=== PATIENT | male | born 1940 | race Caucasian/White ===

== ENCOUNTER 2024-08-05 10:33 | Observation (INO) ==
--- NOTE | 2024-06-25 13:26 | PAT Medication Instructions ---
Medication Instructions Date of Service June 25, 2024 Home Medications Medication Instructions Recorded Maximiliano Solomon #1 ea 06/13/24 ascorbic acid (vitamin C) 500 mg tablet (Vitamin C) 500 mg PO DAILY furosemide 20 mg tablet 20 mg PO DAILY PRN Edema metoprolol succinate 25 mg tablet,extended release 24 hr 25 mg PO QAM omega-3 fatty acids-fish oil 360 mg-1,200 mg capsule (Fish Oil) 1 cap PO BID STOP taking 2 weeks before surgery (or as soon as possible if surgery is within 2 weeks) omega-3 fatty acids-fish oil 360 mg-1,200 mg capsule (Fish Oil) 1 cap PO BID DO NOT take the morning of surgery ascorbic acid (vitamin C) 500 mg tablet (Vitamin C) 500 mg PO DAILY furosemide 20 mg tablet 20 mg PO DAILY PRN Edema Take morning of surgery With a small sip of water, OTHERWISE NOTHING TO EAT OR DRINK AFTER MIDNIGHT: metoprolol succinate 25 mg tablet,extended release 24 hr 25 mg PO QAM Take evening before surgery furosemide 20 mg tablet 20 mg PO DAILY PRN Edema (if needed) Other Notes If you have any questions please call us at [phone] or [phone] or [phone] or [phone]
--- NOTE | 2024-07-15 09:20 | Anesthesiology Consultation ---
Date of Service July 15, 2024 Assessment & Plan (1) Encounter for pre-operative examination: Plan - awaiting [facility] cardiology clearance, optimization form to be faxed. Patient and surgeon's office made aware. He denied questions or concerns. - Patient reports upcoming office visit with [facility]. - will request most recent pacemaker report. - cardiology office visit 01/08/24 [facility]: "...device checks reveal stable pacing thresholds with adequate pacing burden...euvolemic on exam...stable from a cardiac standpoint...usual palpitations and LE swelling...no change in cardiac medications. Echo before next f/u...EP f/u 1 year..." - Outpatient joint assessment: Patient is currently scheduled for inpatient pathway. If re-evaluated and patient/surgeon requests outpatient pathway, patient is not a candidate for outpatient joint program. Chart Review Chart Review: Pending: Refer to Additional Notes / Consult section and Patient seen in Pre Admission Testing Teaching & Discussion Pre-Anesthesia Teaching/Discussion Notes: Instructed NPO after midnight before surgery, except medications with 15 cc of water. Medication instructions provided according to the PAT guidelines. History Surgery Operation Date: 08/05/24 13:00 Proposed Procedures p Left Total Knee Arthroplasty - Alexi Lazar MD Height/Weight Height: 5 ft 10 in Weight: 63.1 kg Allergies Allergy/AdvReac Type Severity Reaction Status Date / Time cephalexin [From Keflex] Allergy Unknown Hives Verified 06/25/24 08:03 sulfamethoxazole Allergy Unknown Hives Verified 06/25/24 08:03 [From Bactrim] trimethoprim [From Bactrim] Allergy Unknown Hives Verified 06/25/24 08:03 Medications Home Medications Medication Instructions Recorded Confirmed Last Taken Wheeled Walker #1 ea 06/13/24 06/13/24 Unknown ascorbic acid (vitamin C) 500 mg 500 mg PO DAILY 06/25/24 06/25/24 Unknown tablet (Vitamin C) metoprolol succinate 25 mg 25 mg PO QAM 06/25/24 06/25/24 Unknown tablet,extended release 24 hr omega-3 fatty acids-fish oil 360 1 cap PO BID 06/25/24 06/25/24 Unknown mg-1,200 mg capsule (Fish Oil) Past Medical History Medical History Acid reflux controlled, stable per pt Allergic rhinitis Bilateral ankle pain due to accidents in service/work; chronic, denies change or worsening BPH (benign prostatic hyperplasia) Cardiac pacemaker (04/18/19) Medtronic - (SSS) checked remotely, follows w/ Dr Silva Constipation COPD (chronic obstructive pulmonary disease) mild; patient states has not needed inhalers Degenerative arthritis knees bilat-patient notes several falls with either knee buckling-states Dr. Lazar is aware-denies recent fall or hitting head-states is able to slowly lower himself to the ground Dyslipidemia no meds Edema of both lower extremities chronic, denies change or worsening History of vertigo follows with ENT HTN (hypertension) controlled, stable per pt Hx of sick sinus syndrome Mitral valve regurgitation Osteoarthritis Self-catheterizes urinary bladder Sleep apnea mild - no longer uses device Tricuspid valve regurgitation Patient denies h/o stroke, seizures, heart attack, heart failure, DM, blood clots/DVTs or blood transfusions. Exercise / Class Metabolic Activity III < 4 Walking/Shop/Light housework (ambulates with cane, denies chest discomfort or shortness of breath with one flight of stairs) Past Surgical History Surgical History History of bladder surgery revision of bladder neck History of transurethral resection of prostate Hx of colonoscopy Hx of umbilical hernia repair S/P lumbar laminectomy Past Anesthesia History No Hx of Anesthesia Complications and No Family Hx of Anesthesia Complications History of PONV No Hx of PONV and No Hx of Motion Sickness Social History Smoking Status: Former smoker Do You Dip or Chew Tobacco: No Smoking End Date: quit 1979 Hx Alcohol Use: Yes Alcohol type: beer and wine alcohol intake frequency: holidays/special occasions only Hx Substance Use: No substance use type: does not use Review of Systems Patient denies chest pain, shortness of breath, dyspnea on exertion, fever, chills, cough, wheezing, or palpitations. Physical Exam Vital Signs Vitals BP 152/92 P 79 TEMP 97.9 SP02 99% on RA RESP 19 Physical Patient resting comfortably in chair in no acute distress, alert and oriented, responding appropriately throughout visit Full cervical extension range of motion without pain TMD 3 finger breadths Mallampati Score 2 Dentition: one crown and one chipped tooth, denies loose teeth, caps, implants or bridges Lungs: normal respiratory effort. Good air movement, clear throughout to auscultation, no adventitious breath sounds Cardiac: regular rate and rhythm, no murmurs noted Carotid arteries: negative bruit bilat Lab Results Anesthesia Preop Results Results Anesthesia Widget: WBC 5.92 K/ul (4.8-10.8) 07/15/24 Hgb 12.0 g/dl (14.0-18.0) L 07/15/24 Hct 37.0 % (42.0-52.0) L 07/15/24 Plt 173 K/uL (130-400) 07/15/24 Na 136 mmol/L (136-145) 07/15/24 K 4.4 mmol/L (3.5-5.1) 07/15/24 Cl 103 mmol/L (98-107) 07/15/24 CO2 28 mmol/L (21-32) 07/15/24 BUN 18 mg/dl (6-23) 07/15/24 Creat 1.01 mg/dl (0.6-1.4) 07/15/24 Glucose Level 81 mg/dl (70-99(Fasting)) 07/15/24 PT 10.9 Seconds (9.0-12.0) 07/15/24 PTT 28 Seconds (21-31) 07/15/24 INR 1.0 (0.9-1.1) 07/15/24 Blood Type A Positive 07/15/24 Antibody Screen NEGATIVE 07/15/24 Testing Electrocardiogram Date: 07/15/24 Atrial paced rhythm with PACs, rate 87 bpm Minimal voltage criteria for LVH, may be normal variant Chest X-Ray Date: 07/15/24 No acute findings. Echocardiogram Date: 04/04/23 EF 55-59% Moderate posterior mitral leaflet prolapse Severe mitral regurgitation Moderate tricuspid regurgitation Mild aortic valve regurgitation Normal LV wall motion Stress Test Date: 06/29/21 MPHR 64% Negative for ischemia Perfusion defect is present at both rest and stress (normal wall motion on gated SPECT). This is more suggestive of attenuation artifact EF 52%
--- NOTE | 2024-08-02 17:28 | History & Physical Report ---
Date of Service August 02, 2024 Assessment & Plan (1) Degenerative arthritis of knee, bilateral: 83-year-old gentleman with advanced bilateral knee DJD left more symptomatic than right. Is failed conservative measures. He would like to have his left knee fixed. Savage like to have both knees fixed with start out with the left. Plan: Orgran proceed with left knee replacement. Risk and benefit this procedure explained. Informed consent is obtained. I emphasized the importance of the controlling the swelling and edema in his legs postoperatively. He is likely going to need to go to rehab or senior care facility as he lives by himself. We use aspirin for DVT prophylaxis. (2) Edema of both lower extremities: (3) Bilateral ankle pain: (4) Tricuspid valve regurgitation: (5) Mitral valve regurgitation: (6) History of vertigo: (7) Dyslipidemia: (8) COPD (chronic obstructive pulmonary disease): (9) Constipation: (10) BPH (benign prostatic hyperplasia): (11) Acid reflux: History of Present Illness Chief Complaint: . Bilateral knee pain discomfort and instability left side greater than the right. Primary Care Provider: Rommel Harman MD . The patient is an 83-year-old gentleman who presents specifically sick for surgery of his knees. He is got about a 5+ year history of increasing bilateral knee pain discomfort and instability. He has been getting treatment [facility] with injections which have become less successful over time. He has been using a cane to get around to assist with his pain and instability. He also has some ankle problems followed by Dr. Doherty. His knee is becoming more unstable and giving out. He is worried about falling. He like to have his knees replaced. Allergies Allergy/AdvReac Type Severity Reaction Status Date / Time cephalexin [From Keflex] Allergy Unknown Hives Verified 06/25/24 08:03 sulfamethoxazole Allergy Unknown Hives Verified 06/25/24 08:03 [From Bactrim] trimethoprim [From Bactrim] Allergy Unknown Hives Verified 06/25/24 08:03 Home Medications Medication Instructions Recorded Confirmed Type Wheeled Walker #1 ea 06/13/24 06/13/24 Rx ascorbic acid (vitamin C) 500 mg 500 mg PO DAILY 06/25/24 06/25/24 History tablet (Vitamin C) metoprolol succinate 25 mg 25 mg PO QAM 06/25/24 06/25/24 History tablet,extended release 24 hr omega-3 fatty acids-fish oil 360 1 cap PO BID 06/25/24 06/25/24 History mg-1,200 mg capsule (Fish Oil) Past Med/Surg History Problem List Encounter for pre-operative examination Degenerative arthritis of knee, bilateral Medical History Bilateral ankle pain due to accidents in service/work; chronic, denies change or worsening Edema of both lower extremities chronic, denies change or worsening Sleep apnea mild - no longer uses device Osteoarthritis Hx of sick sinus syndrome Tricuspid valve regurgitation Mitral valve regurgitation History of vertigo follows with ENT Dyslipidemia no meds COPD (chronic obstructive pulmonary disease) mild; patient states has not needed inhalers Constipation BPH (benign prostatic hyperplasia) Allergic rhinitis Acid reflux controlled, stable per pt Self-catheterizes urinary bladder Cardiac pacemaker (04/18/19) Medtronic - (SSS) checked remotely, follows w/ Dr Silva HTN (hypertension) controlled, stable per pt Degenerative arthritis knees bilat-patient notes several falls with either knee buckling-states Dr. Lazar is aware-denies recent fall or hitting head-states is able to slowly lower himself to the ground Surgical History Hx of umbilical hernia repair History of transurethral resection of prostate Hx of colonoscopy S/P lumbar laminectomy History of bladder surgery revision of bladder neck Social History Smoking Status: Former smoker Tobacco Type: Cigarettes Smoking End Date: quit 1979; Second Hand Exposure: No; Do You Dip or Chew Tobacco: No; Tobacco Cessation Education Requested by Patient: No Hx Alcohol Use: Yes Alcohol type: beer and wine Hx Substance Use: No Preferred Language: Czech Communication Ability: Effective Drawing Press Operator Required: No Beliefs That Will Affect Care: None Current Living Situation: Alone Other Information That Helps Us Care for You: No (rehab upon discharge) Feels Safe at Home: Yes Safety Concerns: Feels Safe At This Time Assistive Devices: Cane, Glasses, Hearing Aid - Bilateral and Walker Review of Systems All systems reviewed & are unremarkable except as noted in HPI & below. Physical Exam . Physical examination is a pleasant elderly male. Examination of his knees reveal patient to ambulates using a cane. Examination left knee reveals a valgus alignment which is increased with weightbearing. Small knee effusion. Range of motion 5-1 20. He is got no instability grossly. He is got some edema distally. Examination the right knee reveals a varus aligned knee. Mild edema distally. Range of motion 5-1 25. No instability. No pain with hip motion. Constitutional WD/WN, vitals as above Respiratory normal respiratory effort, lungs clear to auscultation Cardiovascular RRR, no murmur, no edema Gastrointestinal (Abdomen) normal bowel sounds, soft, nontender, no hepatosplenomegaly Results & Data Results & Data Laboratory Results . Diagnostic Findings . X-rays of both knees reviewed. She advanced bilateral knee DJD. Examination of the left knee reveals complete loss of lateral joint space. X- rays of the right knee reveal advanced medial compartment arthritis. Got [id number] disease in both knees. He is got advanced patellofemoral arthritis as well. PG Care Time/CCT Total # of Minutes Spent Total Time Spent with Patient: Total time spent is greater than 50% in coordination of care (as documented) at patient's floor/unit and/or counseling patient: Coding Level of Care Code None Diagnoses Degenerative arthritis of knee, bilateral M17.0 Edema of both lower extremities R60.0 Bilateral ankle pain M25.571; M25.572 Tricuspid valve regurgitation I07.1 Mitral valve regurgitation I34.0 History of vertigo Z87.898 Dyslipidemia E78.5 COPD (chronic obstructive pulmonary disease) J44.9 Constipation K59.00 BPH (benign prostatic hyperplasia) N40.0 Acid reflux K21.9
[~2024-08-05 10:33] MED LIST: ALLERGY Noted to ORDERED Medication SCH; ROPIVACAINE 0.5% 5 MG/ML 30 ML VIAL ONE
[2024-08-05] MEDS: LR 500ML BOLUS, THEN 15ML/HR IV SCH (10:52)
[2024-08-05] MEDS: dexAMETHasone**PF** 10 MG/ML VIAL IV SCH (10:53)
[2024-08-05] MEDS: CeleBREX 200 MG CAP PO SCH (10:53)
[2024-08-05] MEDS: ACETAMINOPHEN 500 MG TAB PO SCH ×2 (10:53→20:52)
[2024-08-05] MEDS: FAMOTIDINE 20 MG TAB PO SCH (10:54)
[2024-08-05] MEDS: LR 60ML/HR IV SCH (10:54)
[2024-08-05] MEDS: METOCLOPRAMIDE HCL 10 MG TABLET PO SCH (10:54)
--- NOTE | 2024-08-05 11:21 | History & Physical Bridge Note ---
Date of Service August 05, 2024 History & Physical Bridge Note I have examined the patient, reviewed the History & Physical and in the interval since the performance of the History & Physical I have noted the following changes of clinical significance: no changes noted
[2024-08-05] MEDS ORDERED: fentaNYL citrate PF 100 MCG/2 ML VIAL ONE (12:26)
[2024-08-05] MEDS ORDERED: PROPOFOL IV EMULSION 10 MG/ML 20 ML VIAL IV ONE ×2 (12:30→14:48)
[2024-08-05] MEDS ORDERED: KETOROLAC 30 MG/ML VIAL IV PRN (12:31)
[2024-08-05] MEDS ORDERED: ONDANSETRON INJ 2 MG/ML 2 ML VIAL IV PRN ×2 (12:31→17:56)
[2024-08-05] MEDS ORDERED: ATROPINE SULFATE 0.1 MG/ML 10ML SYR IV PRN (12:31)
[2024-08-05] MEDS ORDERED: HYDROmorphone INJ 1 MG/ML SYRINGE IV PRN (12:31)
[2024-08-05] MEDS ORDERED: MIDAZOLAM HCL 1 MG/ML 2ML VIAL ONE (13:02)
[2024-08-05] MEDS: ceFAZolin 2000MG 2,000 MG/15 ML SYR IV SCH (13:45)
[2024-08-05] MEDS ORDERED: KETAMINE HCL 10MG/ML SYR ONE (13:50)
[2024-08-05] MEDS ORDERED: ONDANSETRON INJ 2 MG/ML 2 ML VIAL ONE (14:07)
[2024-08-05] MEDS ORDERED: DEXAMETHASONE SOD INJ 4 MG/ML VIAL ONE (14:07)
[2024-08-05] MEDS: ORTHO JOINT ANESTHETIC ONE (14:19)
[2024-08-05] MEDS: ROPIV 0.5% 246mg, Ketorolac 30mg, EPINEPHrine 0.5mg in NSS INFIL SCH (14:19)
[2024-08-05] MEDS: TRANEXAMIC ACID 1,000 MG **IV Intra-op IV SCH (14:30)
[2024-08-05] MEDS: VANCOMYCIN HCL 1000MG/20ML VIAL ONE (14:33)
--- NOTE | 2024-08-05 15:34 | Operative Report ---
PG Post Operative Report Pre & Post Diagnosis Operation Date: 08/05/24 12:30 Pre-Op Diagnosis: Left Knee Degenerative Joint Disease Post-Op Diagnosis: Left Knee Degenerative Joint Disease I identified the patient and participated in the time-out.: Yes Procedure Operation Date: 08/05/24 12:30 Actual Procedures p Left Total Knee Arthroplasty(Left) - Alexi Lazar MD Surgeon Alexi Lazar MD [employer] Wilfred Faulkner PA-C Estimated Blood Loss 75 Findings Consistent with Post-Op Diagnosis operative findings revealed advanced left knee tricompartment DJD. He had grade 4 [id number] disease in all 3 compartments. Significant hemosiderin staining of the synovium with significant synovitis. Diffuse osteopenia. Specimens Left knee sent for pathology. Anesthesia Type Spinal MAC Complications none Disposition Accompanied Patient To Recovery: No Indications Patient is an 81-year-old elderly gentleman whose had a several year history of gradual progressive increasing bilateral knee pain discomfort. He failed all conservative measures. His knee pain is limiting his activity level and ability to maintain independent lifestyle. He elected proceed with left total knee arthroplasty. Description of Procedure Operative implants consist of: 1. Biomet Vanguard size 65 left posterior stabilized femoral component. 2. Biomet size 71 tibial tray. 3. 10 mm PS plus polyethylene insert. 4. 31 x 8 all poly patella. The patient was taken the op room, identified, placed on the operating table in the supine position. All contact areas were appropriately padded. IV antibiotics fibra anesthesia team. Spinal anesthetic and adductor canal block had been provided in the holding area. A left thigh turn was then placed. Left lower extremity was then prepped and draped in usual sterile fashion. The left leg was elevated and exsanguinated with use of an Esmarch and a turn was placed at 300 mmHg. An anterior approach left knee was then performed to longitudinal incision centered over the patella. Sharp dissection was got through subcutaneous tissue down the extensor mechanism. A medial parapatellar arthrotomy was then performed. Some subperiosteal dissection was carried out medially. The fat pad was dissected from Neath patella tendon. Lateral patellofemoral ligament was released. The patella subluxate laterally and the knee was flexed. The osteophytes taken off distal femur. ACL and PCL were then released from distal femur the tibia subluxated anteriorly. The external tibial alignment jig was then placed on the interface the tibia and adjusted 12 mm medially. The proximal tibial cut was made remove about 2 to 3 mm of bone from medial side. Tibia sized to a size 71. Attention drawn the femur. The distal femur was entered with sharp drill. Intramedullary canal was suction. A left 5 degree valgus cutting guide was placed. This femoral cutting block was pinned in place. This femoral cut was made take an additional 3 mm of bone off distal femur. The femur was then sized to a size 65. The AP cutting block was pinned parallel to the epicondylar axis which was 6 degrees of external rotation. Anterior cut, anterior chamfer, posterior cut, posterior chamfer cuts were made. The box cutting guide was placed and adjusted slightly laterally. The box cut was made. The knee was flexed. The remnants of the medial and lateral menisci were excised. The osteophytes taken off the posterior aspect the femur. A trial femoral component was placed. Tibial tray was pinned Kathryn extra rotation and the drill and stem punch were used. Defect in proximal tibia for the tibial tray. Knee was then trialed with a 10 mm insert fit most appropriate. He did have a little bit of laxity in flexion so we elected to use a PS plus implant. Attention was then drawn to the patella. The patella was cleaned of all soft tissues. The patella thickness measured 18 mm in thickness was cut down to 13. It was sized to a size 31 patella. The locals were drilled for a 31 patella. The lateral osteophytes removed. Patella button was placed. Knee was taken through range of motion patella tracked nicely with no thumbs test. Attention was then drawn toward placement permanent components. All trial components were removed. A double batch of Palacos G cement was mixed. I did add an additional gram of vancomycin to the cement. A Biomet Vanguard size 65 left posterior Byce femoral component, size 71 tibial tray, a 10 mm PS plus insert and a 31 x 8 all poly patella then cemented in place. The knee was brought out into full extension till cement hardened. Final cement check was then performed. The pericapsular tissues were injected with total of 100 cc of Ortho mix. Patient did receive 1 g tranexamic acid. Th e tourniquet was then let down for final tourniquet time of 56 minutes. Hemostasis assured use electrocautery. Extensor Meclomen closed with combination 1 PDS suture #1 Vicryl suture in a [id number] fashion. Extensor Meclomen checked found be intact with subcutaneous tissue then closed with 2 Dexon suture in a buried interrupted fashion skin was closed skin felix. Leg was then cleaned and dried and a sterile dressing with Xeroform, 4 fours, sterile cast padding, Garrett bandage were applied. Patient then transferred to the recovery room in stable condition. Patient tolerated procedure well and there were no complications. Wilfred Faulkner, my physician pediatric assistant, was present for the entire procedure. His assistance was essential and required for appropriate patient positioning, prep ping and draping, surgical exposure, performing the technical details of the operation, placement the implants, closure of the wound, and placement of the sterile bandage. I attest to the content of the Intraoperative Record and any orders documented therein. Any exceptions are noted below.
--- NOTE | 2024-08-05 16:11 | XRay Report ---
Clinical History: Postoperative examination 2 views of the left knee are submitted for review. Comparison is made to the prior examination dated 06/13/2024 Findings: There is a new left knee arthroplasty in expected position. There is no definite sign of infection or loosening. No other osseous abnormality is identified. There is air within the joint space, consistent with recent surgery. There are surgical skin felix anteriorly Impression: New left knee replacement Electronically signed by Diogenes Gotti 08-05-2024 4:11 PM
--- NOTE | 2024-08-05 16:13 | Anesthesiology Progress Note ---
Date of Service August 05, 2024 Anesthesia Post Procedure Vital Signs Vital Signs: Temp Pulse Pulse Resp BP Pulse Ox O2 Del Method 08/05/24 16:00 79 18 118/70 98 Room Air 08/05/24 15:50 77 18 116/86 100 Room Air 08/05/24 15:40 74 19 123/69 99 Room Air 08/05/24 15:29 36.8 C 72 20 97/79 L 98 Oxymask 08/05/24 10:51 36.8 C 85 20 150/86 H 98 Room Air O2 Flow Rate 08/05/24 16:00 08/05/24 15:50 08/05/24 15:40 08/05/24 15:29 6 08/05/24 10:51 Transfer of Care Handoff Completed per policy Notes Mental Status: alert / awake / arousable and participated in evaluation Patient Amnestic to Procedure: Yes Nausea / Vomiting: adequately controlled Pain: adequately controlled Airway Patency, RR, SpO2: stable & adequate BP & HR: stable & adequate Hydration State: stable & adequate Anesthetic Complications: no major complications apparent
[2024-08-05] MEDS ORDERED: traMADol HCL 50 MG TABLET PO PRN (17:56)
[2024-08-05] MEDS ORDERED: NALOXONE HCL 0.4 MG/1 ML VIAL/CARP IV PRN (17:56)
[2024-08-05] MEDS ORDERED: METOCLOPRAMIDE HCL INJ 5 MG/ML 2 ML VIAL IV PRN (17:56)
[2024-08-05] MEDS ORDERED: bisacodyL 10 MG SUPP PR PRN (17:56)
[2024-08-05] MEDS ORDERED: ALUMINUM/MAGNESIUM SUSP 30 ML UDC PO PRN (17:56)
[2024-08-05] MEDS ORDERED: HYDROmorphone INJ 0.5 MG/0.5 ML SYR IV PRN (17:56)
[2024-08-05] MEDS ORDERED: MAGNESIUM HYDROXIDE SUSP 30 ML UDC PO PRN (17:56)
[2024-08-05] MEDS: KETOROLAC TROMETHAMINE 15 MG/ML VIAL IV SCH (18:51)
[2024-08-05] MEDS: SENNA 8.6 MG TAB PO SCH ×2 (20:43→20:51)
[2024-08-05] MEDS: ceFAZolin 1000MG 1,000 MG/7.5 ML SYR IV SCH (20:49)
[2024-08-05] MEDS: OMEGA-3 (PURIFIED FISH OIL) 1 GM CAP PO SCH (20:51)
[2024-08-05] MEDS: DOCUSATE SODIUM 100 MG CAP PO SCH (20:51)
[2024-08-05] MEDS: ASPIRIN 81 MG ECTAB PO SCH (20:51)
[2024-08-05] MEDS: TRANEXAMIC ACID / 0.7% NACL 1,000 MG/100 ML BAG IV SCH (20:52)
[2024-08-06] MEDS: dexAMETHasone 10 MG in SYRINGE 0 ML IV SCH (08:18)
[2024-08-06] MEDS: METOPROLOL SUCC 25MG EXT REL TAB PO SCH (08:19)
[2024-08-06] MEDS: MULTIVITAMIN TAB PO SCH (08:19)
[2024-08-06] MEDS: TAMSULOSIN HCL 0.4 MG CAP PO SCH (08:19)
[2024-08-06] MEDS: ASCORBIC ACID 500 MG TAB PO SCH (08:19)
[2024-08-06 08:27] LABS: Hematocrit (blood only) 30.4 % (42.0-52.0); Hemoglobin 10.3 g/dl (14.0-18.0); Mean Corpuscular Hemoglobin 31.3 pg (25.0-34.0); Mean Corpuscular Hgb Conc 33.9 g/dL (32.0-36.0); Mean Corpuscular Volume 92.4 fL (80.0-100.0); Mean Platelet Volume 11.3 fL (9.4-12.4); Platelet Count 142 K/uL (130-400); RDW Coefficient of Variation 13.8 % (11.5-14.5); RDW Standard Deviation 47.3 fL (36.4-46.3); Red Blood Count 3.29 M/uL (4.70-6.10); White Blood Count 11.27 K/ul (4.8-10.8)
--- NOTE | 2024-08-06 08:57 | Orthopedic Progress Note ---
Date of Service August 06, 2024 Assessment & Plan (1) Status post total left knee replacement: Pain controlled PT/OT, wbat dvt prophylaxis: teds, scd's, aspirin d/c planning: we'll see how therapy goes today, possible d/c home today with home health. Subjective .83 year old patient POD 1 from left tka. Doing well. Pain controlled. Adamant about going home today. Review of Systems All systems reviewed & are unremarkable except as noted in HPI & below. Physical Exam .alert and oriented. NAD. VSS Left leg: dressing clean, dry, intact. Able to flex/ext knee, do straight leg raise, DF/PF, NVI Results & Data Results & Data Laboratory Results . Diagnostic Findings . PG Care Time/CCT Total # of Minutes Spent Total Time Spent with Patient: Total time spent is greater than 50% in coordination of care (as documented) at patient's floor/unit and/or counseling patient: Coding Level of Care Code 96687 Post Operative Follow-Up Diagnoses Status post total left knee replacement Z96.652
[2024-08-06 09:15] LABS: Calcium 8.6 mg/dl (8.6-10.3); Potassium 4.5 mmol/L (3.5-5.1)
[2024-08-06 09:21] LABS: BUN Creatinine Ratio 25.2 (10-20); Creatinine Clr Calc Pharmacy 36.6 ml/min
--- OUTSIDE RECORDS SUMMARY | 2024-08-06 11:16 | External Medical Summary | Summary of Care ---
Author Name Unknown Organization [facility] Address [address] [place] [address] Phone [phone] Care Team Providers Care Blower Insulator Name Role Phone Rommel Harman MD Primary Care Provider [phone] Reason for Visit * Reason Onset Date Comments Advice 06/06/2024 Encounter Details Date Type Department Care Team (Late st Contact Info) Description 06/06/2024 Telephone Cardiology, [place] [address] [facility] [place] [address] Keily Silva, DO 400 [facility] [place] [id number] Advice Allergies Active Allergy Reactions Criticality Noted Date Comments Sulfamethoxazole-Trimethoprim Hives 2015 Rash on extremities Cephalexin Hives 05/26/2015 Rash on extremities documented as of this encounter (statuses as of 07/24/2024) Medications Coila-3 Fatty Acids (FISH OIL) 1200 MG CAPS 2 tablets daily 9 Active Misc. Devices MISC Custom molded orthotics Left foot pain, left ankle pain, OA left ankle 1 Each 0 Active Catheters Self catheterize every 4-6 hours and as needed 120 Each 0 Active Magnesium 200 MG Oral Tablet Take 1 Tablet by mouth in the morning and 1 Tablet before bedtime. 3 Active B-12 2500 MCG Oral Tablet Take 1 Tablet by mouth every evening. 3 Active Rosuvastatin Calcium 5 MG Oral Tablet (Crestor)Indicat ions:Dyslipidemi a, goal LDL below 160 Take 1 Tablet by mouth in the morning. 30 Tablet 11 4 Active Additional Information Patient not taking.Reported on 06/19/2024 Lisinopril 5 MG Oral Tablet (Prinivil) Take 1 Tablet by mouth in the morning. 90 Tablet 3 4 Active Additional Information Patient not taking.Reported on 06/19/2024 Tadalafil 20 MG Oral Tablet (Cialis)Indicati ons:Erectile dysfunction, unspecified erectile dysfunction type Take 1 Tablet by mouth daily as needed for Erectile Dysfunction. 30 Tablet 1 4 Active Additional Information Patient not taking.Reported on 06/19/2024 Clotrimazole-Bet amethasone 1-0.05 % External Cream (Lotrisone) Apply to right foot twice daily. 45 g 5 4 Active Additional Information Patient not taking.Reported on 06/19/2024 Centrum Silver 50+Men Oral Tablet Take by mouth. daily 4 Active Furosemide 20 MG Oral Tablet (Lasix)Indicatio ns:Pedal edema Take 1 Tablet by mouth every other day. 30 Tablet 1 4 Active Metoprolol Succinate ER 25 MG Oral Tablet Extended Release 24 Hour (toPROL XL)Indications:S SS (sick sinus syndrome) (HCC),Symptomati c PVCs TAKE 1 TABLET BY MOUTH EVERY DAY IN THE MORNING 90 Tablet 3 4 Active Nitrofurantoin Monohyd Macro 100 MG Oral Capsule (Macrobid) Take 1 Capsule by mouth in the morning and 1 Capsule before bedtime. With food.. 14 Capsule 4 Active Additional Information Patient not taking.Reported on 06/19/2024 documented as of this encounter (statuses as of 07/24/2024) Active Problems Problem Noted Date Diagnosed Date Cholesteatoma of left ear 04/15/2024 Pulmonary HTN 03/13/2023 Osteoarthritis of left ankle 07/15/2020 Pharyngoesophageal dysphagia 10/03/2019 Gastroesophageal reflux disease without esophagi tis 10/03/2019 History of tobacco use 10/03/2019 SSS (sick sinus syndrome) 04/02/2019 Moderate mitral regurgitation 04/02/2019 Nonrheumatic tricuspid valve regurgitation 04/02 Moderate persistent asthma without complication 04/01/2019 Symptomatic PVCs 03/27/2019 Balance problem 02/01/2018 S/P laminectomy 09/22/2017 Scoliosis of lumbar spine 07/14/2016 Self-catheterizes urinary bladder 01/29/2016 S/P TURP 09/23/2015 History of vertigo 09/23/2015 Dyslipidemia, goal LDL below 160 06/09/2015 Umbilical hernia without obstruction and without gangrene 06/09/2015 documented as of this encounter (statuses as of 07/24/2024) Resolved Problems Problem Noted Date Diagnosed Date Resolved Date Chronic obstructive pulmonary disease 08/16/2021 10/07/2021 S/P lumbar laminectomy 07/14/201608/14 documented as of this encounter (statuses as of 07/24/2024) Immunizations Name Administration Dates Next Due COVID-19 mRNA, LNP-s, No Pre serve, 2-Dose Series (Moderna) 03/30/2021,09/04/2020,08/07/2020 COVID-19, mRNA, LNP-s, PF, B ooster, 100mcg/0.5mg (Moderna) 08/27/2021 Covid-19, Mrna, Lnp-s, Pf, B ivalent, 30 Mcg, IM, 12 yrs and above (Pfizer) 04/05/2022 Pneumococcal Conjugate Vacc, 13 Valent (Prevnar) 10/14/2016,06/01/2016 Pneumococcal Polysaccharide PPV23 (Pneumovax) 03/12/2015 Season Influenza, Quad, PF, Adjuvanted, 65+ Yrs, IM (FLUAD) 02/20/2020 Seasonal Influenza Vac., MDV , IM, 0.5 mL (Fluzone) 03/12/2015 Seasonal Influenza Virus Vac cine, Unspecified Formulation 02/13/2020,02/12/2019,02/12/2017,02/03,02/26/2015 Seasonal Influenza, High Dos e, Trivalent, PF, IM (Fluzone HD) 03/01/2018 Seasonal Influenza, PF, 6 M & above, IM , (FluLaval or Fluzone) 02/13/2020,02/15/2019,02/12/2018,02/25,02/12/2017,02/04/2016,03/12/2015 ,02/26/2015 Seasonal Influenza, Quadriva lent Hd (Fluzone Hd) 02/10/2021 Seasonal Influenza, Quadriva lent Hd, 65+ Yrs 04/05/2022,02/12/2022 Seasonal Influenza, Quadriva lent, No Preserve, IM 02/11/2023,01/29/2016 TDAP (age 10 and older)(Boostrix) 05/28/2015,02/2012 Varicella Zoster Vaccine (Adult) 05/28/2015 Zoster Vaccine Recombinant (Shingrix) 04/22/2020 ,10/30/2018 documented as of this encounter Social History Tobacco Use Types Packs/Day Years Used Date Smoking Tobacco: Former Cigarettes 2 19 0 05/15/1961 - 05/15/1979 Smokeless Tobacco: Never Alcohol Use Standard Drinks/Week Comments Yes 0 (1 standard drink = 0.6 oz pure alcohol) Less than monthly; a beer or wine occasionally PHQ-2 Answer Date Recorded PHQ Adult Total Score 0 04/15/2024 Hunger Vital Sign Answer Date Recorded Within the past 12 months, y ou worried that your food would run out before you got the money to buy more. Never true 04/26/20 23 Within the past 12 months, t he food you bought just didn't last and you didn't have money to get more. Never true 04/26/2023 Childcare Answer Date Recorded Do you feel overwhelmed with taking care of a child, family member or friend? No 04/26/2023 Does your family need help f inding childcare? (Household - for ages 0-17 years) Not on file 04/26/2023 Clothing Answer Date Recorded Have you been unable to get clothing when it was really needed? No 04/26/2023 Is your family able to get c lothes or diapers when needed? (Household - for ages 0-17 years) Not on file 04/26/2023 Personal Safety Answer Date Recorded Do you feel unsafe or have concerns for your saf ety? No 04/26/2023 Do you have concerns for you r family's safety? (Household - for ages 0-17 years) Not on file 04/26/2023 Utilities Answer Date Recorded Do you have trouble paying y our heating, water, or electric bill? No 04/26/2023 Is your family able to pay t he heat, water, or electric bill? (Household - for ages 0-17 years) Not on file 04/26/2023 Does your family have access to good internet? (Household - for ages 0-17 years) Not on file 04/26/2023 Employment Status Answer Date Recorded Are you unemployed or without regular income? No 04/26/2023 Does the household have a re gular source of income? (Household - for ages 0-17 years) Not on file 04/26/2023 Social Connections Answer Date Recorded How often do you feel lonely or isolated from th ose around you? Never 04/26/2023 Financial Resource Strain Answer Date R ecorded Do you have any trouble payi ng for your medications, or do you think you might in the future? No 04/26/2023 Does your family have troubl e paying for medicine? (Household - for ages 0-17 years) Not on file 04/26/2023 Transportation Needs Answer Date Record ed READ ONLY Do you have troubl e getting a ride to medical visits or work? Never True 04/26/2023 Does your family have a hard time getting a ride to doctors visits? (Household - for ages 0-17 years) Not on file 04/26/2023 Has lack of transportation k ept you from medical appointments, meetings, work, or from getting things needed for daily living? Check all that apply. (Adult - for ages 18 years and over) Not on file 04/26/2023 Do you (or your family) have trouble finding or paying for a ride (transportation)? (Household - for ages 0-17 years) Not on file 04/26/2023 Housing Stability Answer Date Recorded Do you currently live in a s helter or have no steady place to sleep at night? No 04/26/2023 READ ONLY Do you think you a re at risk of becoming homeless? No 04/26/2023 Does your family worry about paying for your home or becoming homeless? (Household - for ages 0-17 years) Not on file 1 06/27/2022 Are you homeless or worried that you might be in the future? (Adult - for ages 18 years and over) Not on file Are you (or your family) lizeth eless or worried that you might be in the future? (Household - for ages 0-17 years) Not on file Food Insecurity Answer Date Recorded Do you need food for this week? No 04/26/2023 Are you able to get enough f ood for your family? (Household - for ages 0-17 years) Not on file 04/26/2023 Does your family need food t his week? (Household - for ages 0-17 years) Not on file 04/26/2023 Do you always have enough fo od for your family? (Household - for ages 0-17 years) Not on file 04/26/2023 Sex and Gender Information Value Date Recorded Sex Assigned at Male 04/21/2022 1:41 PM EST Legal Sex Male 4:20 PM EDT Gender Identity Male 04/21/2022 1:41 PM EST Sexual Orientation Straight 04/21/2022 1: 41 PM EST Occupation Industry Job Start Date Job End Date Not on file Not on file Not on file Not on file Not on file Not on file Not on file Not on file documented as of this encounter Functional Status * Are you deaf or do you have serious difficulty hearing? Answer Date of Assessment Author No 04/04/2023 1:20 PM John Castano RN * Are you blind or do you have serious difficulty seeing, even when wearing glasses? Answer Date of Assessment Author No 04/04/2023 1:20 PM John Castano RN * Do you have serious difficulty walking or climbing stairs? (5 years old or older) Answer Date of Assessment Author No 04/04/2023 1:20 PM John Castano RN * Do you have difficulty dressing or bathing? (5 years old or older) Answer Date of Assessment Author No 04/04/2023 1:20 PM John Castano RN * Because of a physical, mental, or emotional condition, do you have difficulty doing errands alone such as visiting a doctors office or shopping? (15 years old or older) Answer Date of Assessment Author No 04/04/2023 1:20 PM John Castano RN documented as of this encounter Mental Status * Because of a physical, mental, or emotional condition, do you have serious difficulty concentrating, remembering, or making decisions? (5 years old or older) Answer Entry Date Author No 04/04/2023 1:20 PM EST John Ferguson RN documented in this encounter Miscellaneous Notes * Telephone Encounter - Christine Martines LPN - 07/24/2024 8:30 AM EDT [facility] were concerned he needed a cardiac clearance, Pt will be having a left total knee replacement on 08/05. With Dr. Lazar at [facility]. Spoke with Ana Laura form is on Dr. Silva's desk for signature. Pt had bloodwork and EKG done yesterday at Dr. Gong office. * Telephone Encounter - Jeane Lares CRNP - 06/17/2024 1:06 PM EST Noted. If pre op clearance is requested can assist further if needed. No questions at this time. Thank you, MELINDA Tyson * Telephone Encounter - iVcky Warren OSA - 06/17/2024 11:47 AM EST Person calling: David Relationship to patient: self Phone/Fax to return call: [phone] Reason for call(brief): pre op clearance Pharmacy: na Provider Name:Dr. Silva Detailed message to office: Pt having knee replacement surgery on 08/05/24 at [facility]. Pre anesthesia testing and all testing (if needed) will be done on 07/15/24. Pt states if you have any questionsto please reach out to Dr. Alexi Lazar at [phone]. Post op appt will be 08/19/24, he wanted to make you aware of what was going on. Pt states you can call him as well if you have any questions for him * Telephone Encounter - Christine Martines LPN - 06/06/2024 3:33 PM EST Please Disregard, Pt has not even seen Dr. Lazar yet. [facility]. They will reach out if and when surgery is needed. Pt has not been seen since January 07 last EKG 06/21/2021. Does Pt need pre op clearance appointment? Left message with Dr. Gong office asking what type of anesthesia and what procedure was being done. * Telephone Encounter - Liv Guillermo OSA - 06/06/2024 3:17 PM EST Person calling: David Relationship to patient: self Phone/Fax to return call: [phone] Reason for call(brief): cardiac clear? Pharmacy: NA Provider Name: Dr Silva Detailed message to office: pt having consult/procedure on 06/13/24 and asking doctor if there are any tests or visits he needs prior to this appt - he would like a call back or you can contact the Ortho surgeon, Dr Alexi Lazar [phone], at [facility] ortho documented in this encounter Plan of Treatment Upcoming Encounters Date Type Department Care Team (Late st Contact Info) Description 09/25/2024 1:00 PM EDT Cardiac Studies Cardiology, [place] [address] [address] [place], Pacer [facility] [address] [address] 11/18/2024 2:40 PM EDT Office Visit Family [facility] [address] [place] [phone] Rommel Harman MD [address] [place] [address] 12/17/2024 2:45 PM EDT Office Visit Otolaryngology/Head & Neck/Facial Plastic Surgery [address] [place] [address] Guy Nicholson MD [address] [place] [address] 01/07/2025 2:00 PM EDT Appointment Cardiac Studies, [facility] [address] [place] [address] 01/16/2025 2:30 PM EDT Office Visit Cardiology, [place] [address] [place] [address] Jeane Lares CRNP [address] [place] [address] Scheduled Procedures Name Priority Associated Diagnoses Date/Ti me COLONOSCOPY FLEXIBLE PROXIMAL DIAGNOSTIC Recall Colon cancer screening Health Maintenance Due Date Last Done Comments Adult Wellness Visit 09/16/2007 COVID-19 Vaccine ( season) 2024 02/07/2024, 02/07/2024, 07/21/2023, Additional history exists Depression Screening 04/15/2025 04/15/2024 DTap/Tdap Vaccines (3 - Td or Tdap) 05/28/2025 05/28/2015, 05/24/2011 Pneumococcal Vaccine: 50+ Years Completed 10/14/2016, 06/01/2016, 03/12/2015 Zoster Vaccines Completed 11/13/2023, 12/01/2020, 10/30/2018, Additional history exists Influenza Vaccine (FLU shot) Completed , 02/11/2023, 04/05/2022, Additional history exists HPV (Gardasil) Vaccine Aged Out No lo nger eligible based on patient's age to complete this topic Hepatitis B Vaccine Aged Out No longe r eligible based on patient's age to complete this topic MENINGOCOCCAL (MENACTRA/MENVEO) Aged Out No longer eligible based on patient's age to complete this topic Meningitis B Vaccine (Bexsero/Trumemba) Aged Out No longer eligible based on patient's age to complete this topic documented as of this encounter Medical Devices Implanted Type Area Hunter Trapper Device Identifier Shelf Expiration Date Model / Serial / Lot Patch Hernia Med [id number] - [id number] Implanted:Qty: 1 on 06/11/2015 by Bernadette Preston DO at OR [facility] N/A: Abdomen CR BARD : DAVOL 02/11/2018 [id number] / / Lead Novus Bipolar 58cm - [id number] - [id number] Implanted:Qty: 1 on 04/18/2019 by Keily Silva DO at OR [facility] Right: Heart [employer] : [facility] 02/12/2021 5076-58 / [id number] / Description: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 52cm - [id number] - [id number] Implanted:Qty: 1 on 04/18/2019 by Keily Silva DO at OR [facility] Left: Chest [employer] : CRM 01/18/2021 5076-5 2 / [id number] / Description:RA Pacemaker Grazyna Xt Mri ls - [id number] - [id number] Implanted:Qty: 1 on 04/18/2019 by Keily Silva DO at OR [facility] Left: Chest [employer] 09/09/2020 [id number] / [id number] / documented as of this encounter Advance Directives Documents on File Type Date Recorded Patient Sawmill Production Worker Expl anation Advance Directives and Livin g Will 10/01/2018 ADVANCE DIRECTIVE Advance Directives and Livin g Will 10/01/2018 LIVING WILL Power of Setter Machine 10/01/2018 POWER OF A TTORNEY * Full Code (Latest Code Status on File) Date Activated Date Inactivated Comments 04/04/2023 7:33 PM 04/05/2023 3:38 PM This order reflects the patients wishes and were consensually agreed upon. Question Answer Comments Discussion of Advance Directives occurred with: Patient Does the patient have a Living Will? No Does the patient have Health Care Power of Attor tiffani? No * Full Code Date Activated Date Inactivated Comments 07/15/2017 6:28 AM 07/15/2017 4:20 PM This order ref lects the patients wishes and were consensually agreed upon. * Full Code Date Activated Date Inactivated Comments 09/14/2015 9:53 AM 2015 4:14 PM This order ref lects the patients wishes and were consensually agreed upon. * Full Code Date Activated Date Inactivated Comments 06/11/2015 6:43 AM 06/11/2015 4:40 PM This order r eflects the patients wishes and were consensually agreed upon. Question Answer Comments Discussion of Advance Directives occurred with: Not Discussed Does the patient have a Living Will? No Does the patient have Health Care Power of Attor tiffani? No Care Teams Blower Insulator Relationship Specialty Start Date End Date Rommel Harman MD [address] [place] [id number] PCP - General Family Medicine 06/20/18 documented as of this encounter
--- OUTSIDE RECORDS SUMMARY | 2024-08-06 11:16 | External Medical Summary | Summary of Care ---
Author Name Unknown Organization [facility] Address [address] [place] [address] Phone [phone] Care Team Providers Care Fancy Sewer Name Role Phone Rommel Harman MD Primary Care Provider [phone] Reason for Visit * Reason Onset Date Comments Advice 07/24/2024 Encounter Details Date Type Department Care Team (Late st Contact Info) Description 07/24/2024 Telephone Cardiology, [place] [address] [facility] [place] [address] Keily Silva, DO 400 [facility] [place] [phone] Advice Allergies Active Allergy Reactions Criticality Noted Date Comments Sulfamethoxazole-Trimethoprim Hives 2015 Rash on extremities Cephalexin Hives 05/26/2015 Rash on extremities documented as of this encounter (statuses as of 07/30/2024) Medications Heaters-3 Fatty Acids (FISH OIL) 1200 MG CAPS [...] as of this encounter (statuses as of 07/30/2024) Active Problems Problem Noted Date Diagnosed Date [...] as of this encounter (statuses as of 07/30/2024) Resolved Problems Problem Noted Date Diagnosed Date Resolved Date Chronic obstructive pulmonary disease 08/16/2021 10/07/2021 S/P lumbar laminectomy 07/14/201608/14 documented as of this encounter (statuses as of 07/30/2024) Immunizations Name Administration Dates Next Due COVID-19 [...] Entry Date Author No 04/04/2023 1:20 PM John Castano RN documented in this encounter Miscellaneous Notes * Telephone Encounter - Layla Gomes NRCMA - 07/30/2024 8:[address] Silva, pt is cleared from a cardiac standpoint for planned left total knee replacement with Dr Lazar at a moderate cardiovascular risk. NAUN Roa * Telephone Encounter - Layla Gomes NRCMA - 07/24/2024 1:13 PM EDT Tried to call both [facility] from facility and pt to make aware that the form needs signed by Dr Silva who is be it the office on 07/29/24. NAUN Roa * Telephone Encounter - Fatimah Sam OSA - 07/24/2024 10:21 AM EDT Person calling: [facility] Relationship to patient: [facility] Phone/Fax to return call: [phone] Reason for call(brief): pre op clearance Pharmacy: Provider Name:Dr. Silva Detailed message to office: [facility] is calling in regards to forms received on 07/17 for pre anesthesia to be completed and returned. Please advise documented in this encounter Plan of Treatment Upcoming Encounters Date Type Department Care Team (Late st Contact Info) Description 09/25/2024 1:00 PM EDT Cardiac Studies Cardiology, [place] [address] [place] [address] [place] [address] [place] [address] 11/18/2024 2:40 PM EDT Office Visit Family [facility] [address] [place] [phone] Rommel Harman MD [address] [place] [address] 12/17/2024 2:45 PM EDT Office Visit Otolaryngology/Head & Neck/Facial Plastic Surgery [address] [place] [address] Guy Nicholson MD [address] [place] [address] 01/07/2025 2:00 PM EDT Appointment Cardiac Studies, [facility] [address] [place] [address] 01/16/2025 2:30 PM EDT Office Visit Cardiology, [place] [address] [place] [address] Jeane Lares CRNP [address] [place] [address] Scheduled Procedures Name Priority Associated Diagnoses Date/Ti [...] this encounter Medical Devices Implanted Type Area Yoghurt Maker Device Identifier Shelf Expiration Date Model / Serial / Lot Patch Hernia Med [id number] - [id number] Implanted:Qty: 1 on 06/11/2015 by Bernadette Preston DO at OR [facility] N/A: Abdomen CR BARD : DAVOL 02/11/2018 [id number] / / Lead Novus Bipolar 58cm - [id number] - [id number] Implanted:Qty: 1 on 04/18/2019 by Keily Silva DO at OR [facility] Right: Heart [employer] : NEHA 02/12/2021 5076-58 / [id number] / Description: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 52cm - [id number] - [id number] Implanted:Qty: 1 on 04/18/2019 by Keily Silva DO at OR [facility] Left: Chest [employer] : NEHA 01/18/2021 5076-5 2 / [id number] / Description:RA Pacemaker Grazyna Xt Dr Boykin Wrls - [id number] - [id number] Implanted:Qty: 1 on 04/18/2019 by Keily Silva DO at OR [facility] Left: Chest [employer] 09/09/2020 [id number] / [id number] / documented as of this encounter Advance Directives Documents on File Type Date Recorded Patient Pockets And Pieces Necktie Operator Expl anation Advance Directives and Livin g Will 10/01/2018 ADVANCE DIRECTIVE Advance Directives and Livin g Will 10/01/2018 LIVING WILL Power of Miniature Train Driver 10/01/2018 POWER OF A TTORNEY * Full [...] Power of Attor tiffani? No Care Teams Fancy Sewer Relationship Specialty Start Date End Date Rommel Harman MD [address] [address] PCP - General Family Medicine 06/20/18 documented as of this encounter
--- OUTSIDE RECORDS SUMMARY | 2024-08-06 11:16 | External Medical Summary | Summary of Care ---
Author Name Unknown Organization [facility] Address [address] [place] [address] Phone [phone] Care Team Providers Care Community Health Program Representative Name Role Phone Rommel Harman MD Primary Care Provider [phone] Reason for Visit * Reason Onset Date Comments Letter Requests 07/31/2024 Encounter Details Date Type Department Care Team (Late st Contact Info) Description 07/31/2024 Telephone [facility] [address] [place] [address] Rommel Harman MD [address] [place] [address] Letter Requests Allergies Active Allergy Reactions Criticality Noted Date Comments Sulfamethoxazole-Trimethoprim Hives 2015 Rash on extremities Cephalexin Hives 05/26/2015 Rash on extremities documented as of this encounter (statuses as of 07/31/2024) Medications Pember[place]-3 Fatty Acids (FISH OIL) 1200 MG CAPS [...] as of this encounter (statuses as of 07/31/2024) Active Problems Problem Noted Date Diagnosed Date [...] as of this encounter (statuses as of 07/31/2024) Resolved Problems Problem Noted Date Diagnosed Date Resolved Date Chronic obstructive pulmonary disease 08/16/2021 10/07/2021 S/P lumbar laminectomy 07/14/201608/14 documented as of this encounter (statuses as of 07/31/2024) Immunizations Name Administration Dates Next Due COVID-19 [...] encounter Miscellaneous Notes * Telephone Encounter - Crystal Fernandez OSA - 07/31/2024 3:41 PM EDT Letter placed at 1st floor check out fruit or nut picker drawer. * Telephone Encounter - Rommel Harman MD - 07/31/2024 1:35 PM EDT Signed letter. Please have it ready for patient to fruit or nut picker. * Telephone Encounter - Livier Moise CMA - 07/31/2024 11:22 AM EDT Pt walked into [facility] today inquiring if PCP could write him a letter stating he is having knee surgery and will need his medication delivered to his home instead of his mail box. He spoke with his email marketing processor who is able to accommodate him as long as he has a letter stating this. Letter pended, please advise. Pt is having surgery Monday and asking to fruit or nut picker letter on Monday. documented in this encounter Plan of Treatment Upcoming Encounters Date Type Department Care Team (Late st Contact Info) Description 09/25/2024 1:00 PM EDT Cardiac Studies Cardiology, [place] [address] [address] [facility] [address] [address] 11/18/2024 2:40 PM EDT Office Visit [facility] [address] [facility] [place] [phone] Rommel Harman MD [address] [place] [address] 12/17/2024 2:45 PM EDT Office Visit Otolaryngology/Head & Neck/Facial Plastic Surgery [address] [place] [address] Guy Nicholson MD [address] [place] [address] 01/07/2025 2:00 PM EDT Appointment Cardiac Studies, [facility] [address] [place] [address] 01/16/2025 2:30 PM EDT Office Visit Cardiology, [address] [address] Jeane Lares CRNP [address] [place] [address] Scheduled Procedures Name Priority Associated Diagnoses Date/Ti [...] this encounter Medical Devices Implanted Type Area Steam And Power Supervisor Device Identifier Shelf Expiration Date Model / Serial / Lot Patch Hernia Med [id number] - [id number] Implanted:Qty: 1 on 06/11/2015 by Bernadette Preston DO at OR [facility] N/A: Abdomen CR BARD : DAVOL 02/11/2018 [id number] / / Lead Novus Bipolar 58cm - [id number] - [id number] Implanted:Qty: 1 on 04/18/2019 by Keily Silva DO at OR [facility] Right: Heart [employer] : CRM 02/12/2021 5076-58 / [id number] / Description: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 52cm - [id number] - [id number] Implanted:Qty: 1 on 04/18/2019 by Keily Silva DO at OR [facility] Left: Chest [employer] : CRM 01/18/2021 5076-5 2 / [id number] / Description:RA Pacemaker [place] Xt Dr Boykin Wrls - [id number] - [id number] Implanted:Qty: 1 on 04/18/2019 by Keily Silva DO at OR [facility] Left: Chest [employer] 09/09/2020 W1DR01 / [id number] / documented as of this encounter Advance Directives Documents on File Type Date Recorded Patient Merchandise Planner Expl anation Advance Directives and Livin g Will 10/01/2018 ADVANCE DIRECTIVE Advance Directives and Livin g Will 10/01/2018 LIVING WILL Power of Curtain Hemmer Automatic 10/01/2018 POWER OF A TTORNEY * Full [...] Power of Attor tiffani? No Care Teams Community Health Program Representative Relationship Specialty Start Date End Date Rommel Harman MD [address] [phone] PCP - General Family Medicine 06/20/18 documented as of this encounter
--- OUTSIDE RECORDS SUMMARY | 2024-08-06 11:17 | External Medical Summary | Summary of Care ---
Author Name Unknown Organization [facility] Address [address] [place] [address] Phone [phone] Care Team Providers Care Pie Bakery Laborer Name Role Phone Rommel Harman MD Primary Care Provider [phone] Reason for Referral * Evaluate & Treat - Unlimited Visits (Within 10 days (routine)) - Pending Review Specialty Diagnoses / Procedures Referred By Conteliezer t Referred To Contact Orthopaedic Surgery / Orthopedics Diagnoses Osteoarthritis of both knees, unspecified osteoarthritis type Osteoarthritis of left ankle, unspecified osteoarthritis type Rommel Harman MD 21 [facility] [place] [address] Phone: tel: fax: Referral ID Status Reason Start Date Expiration Date Visits Requested Visits Authorized [id number] Pending Review Specialty Services Required 07/23/[phone] Question Answer Referral Priority Within 10 days (routine) Where should this appointment be scheduled? External - [place] What body part is the patient being seen for? Thigh/Knee - Left What condition is the patient being seen for? Arthritis including related infection Reason for Visit * Reason Onset Date Comments Referral 07/23/2024 Encounter Details Date Type Department Care Team (Late st Contact Info) Description 07/23/2024 Telephone [facility] [place] [address] [phone] Rommel Harman MD [address] [place] [place] [address] Referral Allergies Active Allergy Reactions Criticality Noted Date Comments Sulfamethoxazole-Trimethoprim Hives 2015 Rash on extremities Cephalexin Hives 05/26/2015 Rash on extremities documented as of this encounter (statuses as of 07/24/2024) Medications [place]-3 Fatty Acids (FISH OIL) 1200 MG CAPS [...] Hour (toPROL XL)Indications:S SS (sick sinus syndrome) ([facility]),Symptomati c PVCs TAKE 1 TABLET BY MOUTH [...] of Assessment Author No 04/04/2023 1:20 PM EST John Ferguson RN * Are you blind or do [...] documented in this encounter Miscellaneous Notes * Addendum Note - Malinda Richardson RN - 07/23/2024 4:08 PM EDTAddended by: MALINDA RICHARDSON on: 07/23/2024 04:08 PM Modules accepted: Orders * Telephone Encounter - Malinda Richardson RN - 07/23/2024 4:07 PM EDT Provider to address: Reason for Call: Referral Contact: Telephone Call Contact Type: Referral(s) Placed Provider In-Basket: No Outcome: Referral placed Scheduling team Please send referral to [place] [facility] Thank you Face to face time spent with Patient (minutes): 0 Total Time including non face to face (minutes): 10 * Addendum Note - Annabelle Metz, MED ASSIST - 07/23/2024 4:04 PM EDT Addended by: ANNABELLE METZ on: 07/23/2024 04:04 PM Modules accepted: Orders * Telephone Encounter - Annabelle Metz MED ASSIST - 07/23/2024 3:59 PM EDT Pt getting knee surgery at [facility], Dr[facility] Alexi Lazar. [facility] suggested getting referral through PCP as well. Left knee. Referral pended. * Telephone Encounter - Corinna Toscano CPhT - 07/23/2024 1:57 PM EDT Patient calling check the status of a knee surgery referral scheduled for 08/05/2024, please advise Thank you, Corinna Toscano Lint Cleaner II [facility] (formerly Tele[facility]) 07/23/2024 1:58 PM * Telephone Encounter - Glenys Chakraborty soil fertility extension specialist - 07/23/2024 1:50 PM EDT Patient calling stating he needs a referral for his knee surgery. Transferred to scheduling Thank you, Glenys Chakraborty Aromatherapist I [facility] 07/23/2024,1:51 PM documented in this encounter Plan of Treatment Upcoming Encounters Date Type Department Care Team (Late st Contact Info) Description 09/25/2024 1:00 PM EDT Cardiac Studies Cardiology, [address] [place] [address] Jennifer Laguerre [facility] [address] [place] [address] 11/18/2024 2:40 PM EDT Office Visit [facility] [address] [place] [address] Rommel Harman MD [address] [place] [address] 12/17/2024 2:45 PM EDT Office Visit Otolaryngology/Head & Neck/Facial Plastic Surgery [address] [place] [address] Guy Nicholson MD [address] [place] [address] 01/07/2025 2:00 PM EDT Appointment Cardiac Studies, [facility] [address] [facility] [place] [address] 01/16/2025 2:30 PM EDT Office Visit Cardiology, [place] [address] [facility] [place] [address] Jeane Lares CRNP [address] [place] [address] Scheduled Procedures Name Priority Associated Diagnoses Date/Ti me COLONOSCOPY FLEXIBLE PROXIMAL DIAGNOSTIC Recall Colon cancer screening Scheduled Referrals Name Type Priority Associated Diagnoses Orde r Schedule ORTHOPAEDICS REFERRAL OP Referral Within 10 days (routine) Osteoarthritis of both knees, unspecified osteoarthritis type Osteoarthritis of left ankle, unspecified osteoarthritis type Ordered: 07/23/2024 Health Maintenance Due Date Last Done Comments [...] this encounter Medical Devices Implanted Type Area Compensation Adjuster Device Identifier Shelf Expiration Date Model / Serial / Lot Patch Hernia Med [id number] - [id number] Implanted:Qty: 1 on 06/11/2015 by Bernadette Preston DO at OR [facility] N/A: Abdomen CR BARD : DAVOL 02/11/2018 [id number] / / Lead Novus Bipolar 58cm - [id number] - [id number] Implanted:Qty: 1 on 04/18/2019 by Keily Silva DO at OR [facility] Right: Heart [employer] : NEHA 02/12/2021 5076-58 / [id number] / Description: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 52cm - [id number] - [id number] Implanted:Qty: 1 on 04/18/2019 by Keily Silva DO at OR [facility] Left: Chest [employer] : CRM 01/18/2021 5076-5 2 / [id number] / Description:RA Pacemaker [place] Xt Dr Boykin Wrls - [id number] - [id number] Implanted:Qty: 1 on 04/18/2019 by Keily Silva DO at OR [facility] Left: Chest [employer] 09/09/2020 W1DR01 / [id number] / documented as of this encounter Visit Diagnoses Diagnosis Osteoarthritis of left ankle, unspecified osteoarthritis type- Primary Osteoarthritis of both knees, unspecified osteoarthritis type documented in this encounter Advance Directives Documents on File Type Date Recorded Patient Newspaper Copy Editor Expl anation Advance Directives and Livin g Will 10/01/2018 ADVANCE DIRECTIVE Advance Directives and Livin g Will 10/01/2018 LIVING WILL Power of Access Consultant 10/01/2018 POWER OF A TTORNEY * Full [...] Power of Attor tiffani? No Care Teams Pie Bakery Laborer Relationship Specialty Start Date End Date Rommel Harman MD [address] [address] PCP - General Family Medicine 06/20/18 documented as of this encounter
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
--- OUTSIDE RECORDS SUMMARY | 2024-08-06 11:17 | External Medical Summary | Summary of Care ---
Author Name Unknown Organization [facility] Address [address] [place] [address] Phone [phone] Care Team Providers Care Aviation Program Manager Name Role Phone Rommel Harman MD Primary Care Provider [phone] [phone] Reason for Referral * Evaluate & Treat - Unlimited Visits (Within 10 days (routine)) - Pending Review Specialty Diagnoses / Procedures Referred By Conteliezer t Referred To Contact Orthopaedic Surgery / Orthopedics Diagnoses Osteoarthritis of both knees, unspecified osteoarthritis type Osteoarthritis of left ankle, unspecified osteoarthritis type Rommel Harman MD 21 [facility] [place] [address] Phone: tel: fax: Referral ID Status Reason Start Date Expiration Date Visits Requested Visits Authorized [id number] Pending Review Specialty Services Required 07/23/[phone] Question Answer Referral Priority Within 10 days (routine) Where should this appointment be scheduled? External - [place] What body part is the patient being seen for? Thigh/Knee - Left What condition is the patient being seen for? Arthritis including related infection Reason for Visit * Reason Onset Date Comments Referral 07/23/2024 Encounter Details Date Type Department Care Team (Late st Contact Info) Description 07/23/2024 Telephone [facility] Sh[place] [address] [place] [address] Rommel Harman MD [address] [place] [address] Referral Allergies Active Allergy Reactions Criticality Noted Date Comments Sulfamethoxazole-Trimethoprim Hives 2015 Rash on extremities Cephalexin Hives 05/26/2015 Rash on extremities documented as of this encounter (statuses as of 07/24/2024) Medications [place]-3 Fatty Acids (FISH OIL) 1200 MG CAPS [...] Hour (toPROL XL)Indications:S SS (sick sinus syndrome) ([facility]),Symptomati c PVCs TAKE 1 TABLET BY MOUTH [...] placed Scheduling team Please send referral to [facility] ortho Thank you Face to face time spent with Patient (minutes): 0 Total Time including non face to face (minutes): 10 * Addendum Note - Annabelle Metz, MED ASSIST - 07/23/2024 4:04 PM EDT Addended by: ANNABELLE METZ on: 07/23/2024 04:04 PM Modules accepted: Orders * Telephone Encounter - Annabelle Metz MED ASSIST - 07/23/2024 3:59 PM EDT Pt getting knee surgery at [facility], Dr. Alexi Lazar. [facility] suggested getting referral through PCP as well. Left knee. Referral pended. * Telephone Encounter - Corinna Toscano CPhT - 07/23/2024 1:57 PM EDT Patient calling check the status of a knee surgery referral scheduled for 08/05/2024, please advise Thank you, Corinna Toscano Billing Specialist II [facility] ([facility]) (formerly Telepharmacy) 07/23/2024 1:58 PM * Telephone Encounter - Glenys Chakraborty classroom paraprofessional - 07/23/2024 1:50 PM EDT Patient calling stating he needs a referral for his knee surgery. Transferred to scheduling Thank you, Glenys Chakraborty Sod Stripper I [facility] ([facility]) 07/23/2024,1:51 PM documented in this encounter Plan of Treatment Upcoming Encounters Date Type Department Care Team (Late st Contact Info) Description 09/25/2024 1:00 PM EDT Cardiac Studies Cardiology, [address] [place] [address] Jennifer Laguerre [facility] [address] [place] [address] 11/18/2024 2:40 PM EDT Office Visit [facility] 21 [place] [address] Rommel Harman MD [address] [place] [address] 12/17/2024 2:45 PM EDT Office Visit Otolaryngology/Head & Neck/Facial Plastic Surgery [address] [place] [address] Guy Nicholson MD [address] [place] [address] 01/07/2025 2:00 PM EDT Appointment Cardiac Studies, [facility] 400 [facility] [place] [address] 01/16/2025 2:30 PM EDT Office Visit Cardiology, [place] 400 [place] [address] Jeane Lares CRNP 400 [place] [address] Scheduled Procedures Name Priority Associated Diagnoses Date/Ti [...] this encounter Medical Devices Implanted Type Area Api Product Manager Device Identifier Shelf Expiration Date Model / Serial / Lot Patch Hernia Med [id number] - [id number] Implanted:Qty: 1 on 06/11/2015 by Bernadette Preston DO at OR [facility] N/A: Abdomen CR BARD : DAVOL 02/11/2018 [id number] / / Lead Novus Bipolar 58cm - [id number] - [id number] Implanted:Qty: 1 on 04/18/2019 by Keily Silva DO at OR [facility] Right: Heart [employer] : NEHA 02/12/2021 5076-58 / [id number] / Description: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 52cm - [id number] - [id number] Implanted:Qty: 1 on 04/18/2019 by Keily Silva DO at OR [facility] Left: Chest [employer] : CRM 01/18/2021 5076-5 2 / [id number] / Description:RA Pacemaker [place] Xt Dr Boykin Wrls - [id number] - [id number] Implanted:Qty: 1 on 04/18/2019 by Keily Silva DO at OR [facility] Left: Chest [employer] 09/09/2020 W1DR01 / [id number] / documented as of this encounter Visit Diagnoses Diagnosis Osteoarthritis of left ankle, unspecified osteoarthritis type- Primary Osteoarthritis of both knees, unspecified osteoarthritis type documented in this encounter Advance Directives Documents on File Type Date Recorded Patient Inside Sales Trainer Expl anation Advance Directives and Livin g Will 10/01/2018 ADVANCE DIRECTIVE Advance Directives and Livin g Will 10/01/2018 LIVING WILL Power of Job Change Crew Member 10/01/2018 POWER OF A TTORNEY * Full [...] Power of Attor tiffani? No Care Teams Aviation Program Manager Relationship Specialty Start Date End Date Rommel Harman MD [address] [place] [address] PCP - General Family Medicine 06/20/18 documented as of this encounter
--- OUTSIDE RECORDS SUMMARY | 2024-08-06 11:17 | External Medical Summary | Summary of Care ---
Author Name Unknown Organization [facility] Address [address] [place] [address] Phone [phone] Care Team Providers Care Maritime Guard Name Role Phone Rommel Harman MD Primary Care Provider [phone] Reason for Referral * Evaluate & Treat - Unlimited Visits (Within 10 days (routine)) - Pending Review Specialty Diagnoses / Procedures Referred By Conteliezer t Referred To Contact Orthopaedic Surgery / Orthopedics Diagnoses Osteoarthritis of both knees, unspecified osteoarthritis type Osteoarthritis of left ankle, unspecified osteoarthritis type Rommel Harman MD 21 [facility] [place] [address] Phone: tel: fax: Referral ID Status Reason Start Date Expiration Date Visits Requested Visits Authorized [id number] Pending Review Specialty Services Required 07/23/[phone] Question Answer Referral Priority Within 10 days (routine) Where should this appointment be scheduled? External - [place] What body part is the patient being seen for? Thigh/Knee - Left What condition is the patient being seen for? Arthritis including related infection Reason for Visit * Reason Onset Date Comments Referral 07/23/2024 Encounter Details Date Type Department Care Team (Late st Contact Info) Description 07/23/2024 Telephone [facility] Shade [place] [address] [place] [address] Rommel Harman MD [address] [place] [address] Referral Allergies Active Allergy Reactions Criticality Noted Date Comments Sulfamethoxazole-Trimethoprim Hives 2015 Rash on extremities Cephalexin Hives 05/26/2015 Rash on extremities documented as of this encounter (statuses as of 07/23/2024) Medications [place]-3 Fatty Acids (FISH OIL) 1200 MG CAPS [...] (toPROL XL)Indications:S SS (sick sinus syndrome) ([facility]),Symptomati c PVCs TAKE 1 TABLET BY MOUTH EVERY DAY IN THE MORNING 90 Tablet 3 4 Active Nitrofurantoin Monohyd Macro 100 MG Oral Capsule (Macrobid) Take 1 Capsule by mouth in the morning and 1 Capsule before bedtime. With food.. 14 Capsule 4 Active Additional Information Patient not taking.Reported on 06/19/2024 documented as of this encounter (statuses as of 07/23/2024) Active Problems Problem Noted Date Diagnosed Date [...] as of this encounter (statuses as of 07/23/2024) Resolved Problems Problem Noted Date Diagnosed Date Resolved Date Chronic obstructive pulmonary disease 08/16/2021 10/07/2021 S/P lumbar laminectomy 07/14/201608/14 documented as of this encounter (statuses as of 07/23/2024) Immunizations Name Administration Dates Next Due COVID-19 [...] placed Scheduling team Please send referral to [facility] ortho Thank you Face to face time spent with Patient (minutes): 0 Total Time including non face to face (minutes): 10 * Addendum Note - Annabelle Metz, MED ASSIST - 07/23/2024 4:04 PM EDT Addended by: ANNABELLE METZ on: 07/23/2024 04:04 PM Modules accepted: Orders * Telephone Encounter - Annabelle Metz MED ASSIST - 07/23/2024 3:59 PM EDT Pt getting knee surgery at [facility], Dr. Alexi Lazar. [facility] They suggested getting referral through PCP as well. Left knee. Referral pended. * Telephone Encounter - Corinna Toscano CPhT - 07/23/2024 1:57 PM EDT Patient calling check the status of a knee surgery referral scheduled for 08/05/2024, please advise Thank you, Corinna Toscano Brake Repair Supervisor II [facility] Services ([facility]) (formerly Telepharmacy) 07/23/2024 1:58 PM * Telephone Encounter - Glenys Chakraborty tree girdler - 07/23/2024 1:50 PM EDT Patient calling stating he needs a referral for his knee surgery. Transferred to scheduling Thank you, Glenys Chakraborty Slip Cover Sewer I [facility] ([facility]) 07/23/2024,1:51 PM documented in this encounter Plan of Treatment Upcoming Encounters Date Type Department Care Team (Late st Contact Info) Description 09/25/2024 1:00 PM EDT Cardiac Studies Cardiology, [address] [place] [address] [facility] [address] [place] [address] 11/18/2024 2:40 PM EDT Office Visit [facility] 21 [facility] [address] Rommel Harman MD 21 [place] [address] 12/17/2024 2:45 PM EDT Office Visit Otolaryngology/Head & Neck/Facial Plastic Surgery [address] [place] [address] Guy Nicholson MD [address] [place] [address] 01/07/2025 2:00 PM EDT Appointment Cardiac Studies, [facility] 400 [facility] [place] [address] 01/16/2025 2:30 PM EDT Office Visit Cardiology, [place] 400 [place] [address] Jeane Lares CRNP 400 [place] [address] Scheduled Procedures Name Priority Associated Diagnoses Date/Ti [...] this encounter Medical Devices Implanted Type Area Simplex Printer Installer Device Identifier Shelf Expiration Date Model / Serial / Lot Patch Hernia Med [id number] - [id number] Implanted:Qty: 1 on 06/11/2015 by Bernadette Preston DO at OR [facility] N/A: Abdomen CR BARD : DAVOL 02/11/2018 [id number] / / Lead Novus Bipolar 58cm - [id number] - [id number] Implanted:Qty: 1 on 04/18/2019 by Keily Silva DO at OR [facility] Right: Heart [employer] : NEHA 02/12/2021 5076-58 / [id number] / Description: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 52cm - [id number] - [id number] Implanted:Qty: 1 on 04/18/2019 by Keily Silva DO at OR [facility] Left: Chest [employer] : CRM 01/18/2021 5076-5 2 / [id number] / Description:RA Pacemaker [place] Xt Dr Boykin Wrls - [id number] - [id number] Implanted:Qty: 1 on 04/18/2019 by Keily Silva DO at OR [facility] Left: Chest [employer] 09/09/2020 W1DR01 / [id number] / documented as of this encounter Visit Diagnoses Diagnosis Osteoarthritis of left ankle, unspecified osteoarthritis type- Primary Osteoarthritis of both knees, unspecified osteoarthritis type documented in this encounter Advance Directives Documents on File Type Date Recorded Patient Dance Coach Expl anation Advance Directives and Livin g Will 10/01/2018 ADVANCE DIRECTIVE Advance Directives and Livin g Will 10/01/2018 LIVING WILL Power of Drawing Kiln Operator 10/01/2018 POWER OF A TTORNEY * Full [...] Power of Attor tiffani? No Care Teams Maritime Guard Relationship Specialty Start Date End Date Rommel Harman MD [address] [address] PCP - General Family Medicine 06/20/18 documented as of this encounter
--- OUTSIDE RECORDS SUMMARY | 2024-08-06 11:17 | External Medical Summary | Summary of Care ---
Author Name Unknown Organization [facility] Address [address] [place] [address] Phone [phone] Care Team Providers Care Local Operator Name Role Phone Rommel Harman MD Primary Care Provider [phone] Reason for Referral * Evaluate & Treat - Unlimited Visits (Within 10 days (routine)) - Pending Review Specialty Diagnoses / Procedures Referred By Conteliezer t Referred To Contact Orthopaedic Surgery / Orthopedics Diagnoses Osteoarthritis of both knees, unspecified osteoarthritis type Osteoarthritis of left ankle, unspecified osteoarthritis type Rommel Harman MD 21 [facility] [place] [address] Phone: tel: fax: Referral ID Status Reason Start Date Expiration Date Visits Requested Visits Authorized [id number] Pending Review Specialty Services Required 07/23/[phone] Question Answer Referral Priority Within 10 days (routine) Where should this appointment be scheduled? External - [place] What body part is the patient being seen for? Thigh/Knee - Left What condition is the patient being seen for? Arthritis including related infection Reason for Visit * Reason Onset Date Comments Referral 07/23/2024 Encounter Details Date Type Department Care Team (Late st Contact Info) Description 07/23/2024 Telephone [facility] [place] [address] [place] [address] Rommel Harman MD [address] [place] [address] Referral Allergies Active Allergy Reactions Criticality Noted Date Comments Sulfamethoxazole-Trimethoprim Hives 2015 Rash on extremities Cephalexin Hives 05/26/2015 Rash on extremities documented as of this encounter (statuses as of 07/24/2024) Medications [place]-3 Fatty Acids (FISH OIL) 1200 MG CAPS [...] Hour (toPROL XL)Indications:S SS (sick sinus syndrome) ([facility]),Symptomati c PVCs TAKE 1 TABLET BY [...] encounter Miscellaneous Notes * Telephone Encounter - Shilpa Delgado OSA - 07/24/2024 6:37 AM EDT Referral faxed to [facility] orthopedic per pt request * Addendum Note - Malinda Richardson RN - 07/23/2024 4:08 PM EDTAddended by: MALINDA RICHARDSON on: 07/23/2024 04:08 PM Modules accepted: Orders * Telephone Encounter - Malinda Richardson RN - 07/23/2024 4:07 PM EDT Provider to address: Reason for Call: Referral Contact: Telephone Call Contact Type: Referral(s) Placed Provider In-Basket: No Outcome: Referral placed Scheduling team Please send referral to [facility] ortho Thank you Face to face time spent with Patient (minutes): 0 Total Time including non face to face (minutes): 10 * Addendum Note - Annabelle Metz MED ASSIST - 07/23/2024 4:04 PM EDT Addended by: ANNABELLE METZ on: 07/23/2024 04:04 PM Modules accepted: Orders * Telephone Encounter - Annabelle Metz MED ASSIST - 07/23/2024 3:59 PM EDT Pt getting knee surgery at [facility], Dr. Alexi Lazar. [facility] They suggested getting referral through PCP as well. Left knee. Referral pended. * Telephone Encounter - Corinna Toscano CPhT - 07/23/2024 1:57 PM EDT Patient calling check the status of a knee surgery referral scheduled for 08/05/2024, please advise Thank you, Corinna Toscano Cycle Analyst II [facility] Services ([facility]) (formerly Telepharmacy) 07/23/2024 1:58 PM * Telephone Encounter - Glenys Chakraborty jewelry jobber - 07/23/2024 1:50 PM EDT Patient calling stating he needs a referral for his knee surgery. Transferred to scheduling Thank you, Glenys Chakraborty Arrt Technologist I [facility] ([facility]) 07/23/2024,1:51 PM documented in this encounter Plan of Treatment Upcoming Encounters Date Type Department Care Team (Late st Contact Info) Description 09/25/2024 1:00 PM EDT Cardiac Studies Cardiology, [place] 400 [place] [address] [place], [facility] [address] [place] [address] 11/18/2024 2:40 PM EDT Office Visit Family [facility] [address] [place] [id number] Rommel Harman MD [address] [place] [address] 12/17/2024 2:45 PM EDT Office Visit Otolaryngology/Head & Neck/Facial Plastic Surgery [address] [place] [address] Guy Nicholson MD [address] [place] [address] 01/07/2025 2:00 PM EDT Appointment Cardiac Studies, [facility] [address] [place] [address] 01/16/2025 2:30 PM EDT Office Visit [facility] [address] [place] [address] Jeane Lares CRNP [address] [place] [address] Scheduled Procedures Name Priority Associated Diagnoses Date/Ti [...] 10/14/2016, 06/01/2016, 03/12/2015 Zoster Vaccines Completed 11/13/2023, 01/2020, 10/30/2018, Additional history exists Influenza Vaccine (FLU [...] this encounter Medical Devices Implanted Type Area Credit Rating Checker Device Identifier Shelf Expiration Date Model / Serial / Lot Patch Hernia Med [id number] - [id number] Implanted:Qty: 1 on 06/11/2015 by Bernadette Preston DO at OR [facility] N/A: Abdomen CR BARD : DAVOL 02/11/2018 [id number] / / Lead Novus Bipolar 58cm - [id number] - [id number] Implanted:Qty: 1 on 04/18/2019 by Keily Silva DO at OR [facility] Right: Heart [employer] : NEHA 02/12/2021 5076-58 / [id number] / Description: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 52cm - [id number] - [id number] Implanted:Qty: 1 on 04/18/2019 by Keily Silva DO at OR [facility] Left: Chest [employer] : NEHA 01/18/2021 5076-5 2 / [id number] / Description:RA Pacemaker [place] Xt [facility] Boykin [facility] - [id number] - [id number] Implanted:Qty: 1 on 04/18/2019 by Keily Silva DO at OR [facility] Left: Chest [employer] 09/09/2020 W1DR01 / [id number] / documented as of this encounter Visit Diagnoses Diagnosis Osteoarthritis of left ankle, unspecified osteoarthritis type- Primary Osteoarthritis of both knees, unspecified osteoarthritis type documented in this encounter Advance Directives Documents on File Type Date Recorded Patient Property Loss Insurance Claim Adjuster Expl anation Advance Directives and Livin g Will 10/01/2018 ADVANCE DIRECTIVE Advance Directives and Livin g Will 10/01/2018 LIVING WILL Power of Windows And Doors Installer 10/01/2018 POWER OF A TTORNEY * Full [...] Power of Attor tiffani? No Care Teams Local Operator Relationship Specialty Start Date End Date Rommel Harman MD [address] [place] [address] PCP - General Family Medicine 06/20/18 documented as of this encounter
--- OUTSIDE RECORDS SUMMARY | 2024-08-06 11:17 | External Medical Summary | Summary of Care ---
Author Name Unknown Organization [facility] Address [address] [place] [address] Phone [phone] Care Team Providers Care Out And Out Cigar Maker Hand Name Role Phone Rommel Harman MD Primary Care Provider [phone] Reason for Visit * Reason Onset Date Comments Other 07/22/2024 Encounter Details Date Type Department Care Team (Late st Contact Info) Description 07/22/2024 Telephone Otolaryngology/Head & Neck/Facial Plastic Surgery [address] [place] [address] Guy Nicholson MD [address] [place] [address] Other Allergies Active Allergy Reactions Criticality Noted Date Comments Sulfamethoxazole-Trimethoprim Hives 2015 Rash on extremities Cephalexin Hives 05/26/2015 Rash on extremities documented as of this encounter (statuses as of 07/22/2024) Medications [place]-3 Fatty Acids (FISH OIL) 1200 MG CAPS [...] as of this encounter (statuses as of 07/22/2024) Active Problems Problem Noted Date Diagnosed Date [...] as of this encounter (statuses as of 07/22/2024) Resolved Problems Problem Noted Date Diagnosed Date Resolved Date Chronic obstructive pulmonary disease 08/16/2021 10/07/2021 S/P lumbar laminectomy 07/14/201608/14 documented as of this encounter (statuses as of 07/22/2024) Immunizations Name Administration Dates Next Due COVID-19 [...] encounter Miscellaneous Notes * Telephone Encounter - Kylah Boss LPN - 07/22/2024 2:35 PM EDT Called & spoke to patient requested by to inquire if patient wanted [place] appt. Perpatient he did,he is having a knee replacement end of July & will need therapy, so he wanted afather out appt. documented in this encounter Plan of Treatment Upcoming Encounters Date Type Department Care Team (Late st Contact Info) Description 09/25/2024 1:00 PM EDT Cardiac Studies Cardiology[address] [place] [address] [facility] 400 [place] [address] 11/18/2024 2:40 PM EDT Office Visit [address] [place] [phone] Rommel Harman MD [address] [place] [address] 12/17/2024 2:45 PM EDT Office Visit Otolaryngology/Head & Neck/Facial Plastic Surgery [address] [place] [address] Guy Nicholson MD [address] [place] [address] 01/07/2025 2:00 PM EDT Appointment Cardiac Studies, [facility] [address] [place] [address] 01/16/2025 2:30 PM EDT Office Visit Cardiology[address] [place] [address] Jeane Lares CRNP [address] [place] [address] Scheduled Procedures Name Priority Associated Diagnoses Date/Ti [...] 10/14/2016, 06/01/2016, 03/12/2015 Zoster Vaccines Completed 11/13/2023, 1201/2020, 10/30/2018, Additional history exists Influenza Vaccine (FLU [...] this encounter Medical Devices Implanted Type Area Steel Shot Header Operator Device Identifier Shelf Expiration Date Model / Serial / Lot Patch Hernia Med [id number] - [id number] Implanted:Qty: 1 on 06/11/2015 by Bernadette Preston DO at OR [facility] N/A: Abdomen CR BARD : DAVOL 02/11/2018 [id number] / / Lead Novus Bipolar 58cm - [id number] - [id number] Implanted:Qty: 1 on 04/18/2019 by Keily Silva DO at OR [facility] Right: Heart [employer] : CRM 02/12/2021 5076-58 / [id number] / Description: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 - [id number] - [id number] Implanted:Qty: 1 on 04/18/2019 by Keily Silva, DO at OR [facility] Left: Chest [employer] : [facility] 01/18/2021 5076-5 2 / [id number] / Description:RA Pacemaker [place]razyna Xt [facility] Mri [facility] - [id number] - [id number] Implanted:Qty: 1 on 04/18/2019 by Keily Silva, DO at OR [facility] Left: Chest [employer] 09/09/2020 W1DR01 / [id number] / documented as of this encounter Advance Directives Documents on File Type Date Recorded Patient [place] [employer]ings Group Leader Expl anation Advance Directives and Livin g Will 10/01/2018 ADVANCE DIRECTIVE Advance Directives and Livin g Will 10/01/2018 LIVING WILL Power of Block Greaser 10/01/2018 POWER OF A TTORNEY * Full [...] Power of Attor tiffani? No Care Teams Out And Out Cigar Maker Hand Relationship Specialty Start Date End Date Rommel Harman MD [address] [place] [address] PCP - General Family Medicine 06/20/18 documented as of this encounter
--- OUTSIDE RECORDS SUMMARY | 2024-08-06 11:17 | External Medical Summary | Summary of Care ---
Author Name Unknown Organization [facility] Address [address] [place] [address] Phone [phone] Care Team Providers Care Technical Associate Name Role Phone Rommel Harman MD Primary Care Provider [phone] Reason for Referral * Evaluate & Treat - Unlimited Visits (Within 10 days (routine)) - Pending Review Specialty Diagnoses / Procedures Referred By Conteliezer t Referred To Contact Orthopaedic Surgery / Orthopedics Diagnoses Osteoarthritis of both knees, unspecified osteoarthritis type Osteoarthritis of left ankle, unspecified osteoarthritis type Rommel Harman MD [address] [facility] [place] [address] Phone: tel: fax: Referral ID Status Reason Start Date Expiration Date Visits Requested Visits Authorized [id number] Pending Review Specialty Services Required 07/23/[phone] Question Answer Referral Priority Within 10 days (routine) Where should this appointment be scheduled? External - [facility] What body part is the patient being seen for? Thigh/Knee - Left What condition is the patient being seen for? Arthritis including related infection Reason for Visit * Reason Onset Date Comments Referral 07/23/2024 Encounter Details Date Type Department Care Team (Late st Contact Info) Description 07/23/2024 Telephone [facility] [place] [address] [place] [id number] Rommel Harman MD [address] [place] [address] Referral Allergies Active Allergy Reactions Criticality Noted Date Comments Sulfamethoxazole-Trimethoprim Hives 2015 Rash on extremities Cephalexin Hives 05/26/2015 Rash on extremities documented as of this encounter (statuses as of 07/23/2024) Medications [place]-3 Fatty Acids (FISH OIL) 1200 MG CAPS [...] (toPROL XL)Indications:S SS (sick sinus syndrome) ([facility]),Symptomati c PVCs TAKE 1 TABLET BY MOUTH [...] placed Scheduling team Please send referral to [facility] ortho Thank you Face to face time spent with Patient (minutes): 0 Total Time including non face to face (minutes): 10 * Addendum Note - Annabelle Metz, MED ASSIST - 07/23/2024 4:04 PM EDT Addended by: ANNABELLE METZ on: 07/23/2024 04:04 PM Modules accepted: Orders * Telephone Encounter - Annabelle Metz MED ASSIST - 07/23/2024 3:59 PM EDT Pt getting knee surgery at [facility], Dr[facility] Alexi Lazar. [facility] suggested getting referral through PCP as well. Left knee. Referral pended. * Telephone Encounter - Corinna Toscano CPhT - 07/23/2024 1:57 PM EDT Patient calling check the status of a knee surgery referral scheduled for 08/05/2024, please advise Thank you, Corinna Toscano [facility] ([facility]) 07/23/2024 1:58 PM * Telephone Encounter - Glenys Chakraborty abrasive wheel molder - 07/23/2024 1:50 PM EDT Patient calling stating he needs a referral for his knee surgery. Transferred to scheduling Thank you, Glenys Chakraborty Street Worker I [facility] 07/23/2024,1:51 PM documented in this encounter Plan of Treatment Upcoming Encounters Date Type Department Care Team (Late st Contact Info) Description 09/25/2024 1:00 PM EDT Cardiac Studies Cardiology, [address] [place] [address] Jennifer [place] [facility] [address] [place] [address] 11/18/2024 2:40 PM EDT Office Visit [facility] [address] [place] [phone] Rommel Harman MD [address] [place] [address] 12/17/2024 2:45 PM EDT Office Visit Otolaryngology/Head & Neck/Facial Plastic Surgery [address] [place] [address] Guy Nicholson MD [address] [place] [address] 01/07/2025 2:00 PM EDT Appointment Cardiac Studies, [facility] [address] [facility] [place] [address] 01/16/2025 2:30 PM EDT Office Visit Cardiology, [place] [address] [place] [address] Jeane Lares CRNP [address] [place] [address] Scheduled Procedures Name Priority Associated Diagnoses Date/Ti [...] this encounter Medical Devices Implanted Type Area Garment Sewing Machine Operator Device Identifier Shelf Expiration Date Model / Serial / Lot Patch Hernia Med [id number] - [id number] Implanted:Qty: 1 on 06/11/2015 by Bernadette Preston DO at OR [facility] N/A: Abdomen CR BARD : DAVOL 02/11/2018 [id number] / / Lead Novus Bipolar 58cm - [id number] - [id number] Implanted:Qty: 1 on 04/18/2019 by Keily Silva DO at OR [facility] Right: Heart [employer] : NEHA 02/12/2021 5076-58 / [id number] / Description: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 52cm - [id number] - [id number] Implanted:Qty: 1 on 04/18/2019 by Keily Silva DO at OR [facility] Left: Chest [employer] : CRM 01/18/2021 5076-5 2 / [id number] / Description:RA Pacemaker [place] Xt Dr Boykin Wrls - [id number] - [id number] Implanted:Qty: 1 on 04/18/2019 by Keily Silva DO at OR [facility] Left: Chest [employer] 09/09/2020 [id number] / [id number] / documented as of this encounter Visit Diagnoses Diagnosis Osteoarthritis of left ankle, unspecified osteoarthritis type- Primary Osteoarthritis of both knees, unspecified osteoarthritis type documented in this encounter Advance Directives Documents on File Type Date Recorded Patient Angiographer Expl anation Advance Directives and Livin g Will 10/01/2018 ADVANCE DIRECTIVE Advance Directives and Livin g Will 10/01/2018 LIVING WILL Power of Reprographics Associate 10/01/2018 POWER OF A TTORNEY * Full [...] Power of Attor tiffani? No Care Teams Technical Associate Relationship Specialty Start Date End Date Rommel Harman MD [address] [address] PCP - General Family Medicine 06/20/18 documented as of this encounter
--- NOTE | 2024-08-08 06:41 | Discharge Summary ---
Date of Service August 08, 2024 Admission HPI (Per Admitting) . The patient is an 83-year-old gentleman who presents specifically sick for surgery of his knees. He is got about a 5+ year history of increasing bilateral knee pain discomfort and instability. [facility] with [facility] which have become less successful over time. He has been using a cane to get around to assist with his pain and instability. He also has some ankle problems followed by Dr. Doherty. His knee is becoming more unstable and giving out. He is worried about falling. He like to have his knees replaced. Admission Exam (Per Admitting) . Physical examination is a pleasant elderly male. Examination of his knees reveal patient to ambulates using a cane. Examination left knee reveals a valgus alignment which is increased with weightbearing. Small knee effusion. Range of motion 5-1 20. He is got no instability grossly. He is got some edema distally. Examination the right knee reveals a varus aligned knee. Mild edema distally. Range of motion 5-1 25. No instability. No pain with hip motion. Principal Diagnosis Same as "Discharge Diagnosis" noted below under Discharge Instructions. Discharge Exam .alert and oriented. NAD. VSS Left leg: dressing clean, dry, intact. Able to flex/ext knee, do straight leg raise, DF/PF, NVI Discharge Data Procedures Performed Operation Date: 08/05/24 12:30 Actual Procedures p Left Total Knee Arthroplasty(Left) - Alexi Lazar MD Ordered Studies 08/05/24 05:00 US - OR guided needle placemen Routine Hospital Course (1) Status post total left knee replacement: This is a 83 year old patient admitted on 08/05/24 and underwent total knee arthroplasty. He tolerated the procedure well and there were no complications. Transferred to the PACU post op and later to the orthopedic floor for further care. He was given ancef for antibiotic prophylaxis. He was also given KEESHA stockings, SCDs, and aspirin for DVT prophylaxis. Hemoglobin, hematocrit, and vital signs were monitored during his hospital stay and remained stable. Did not require any blood transfusions. There were no complications during his hospital stay. By post op day #1 the patient was tolerating a regular diet, pain was reasonably controlled with oral pain medicine, and he was participating in physical therapy. On post op day #1 the patient was discharged home and set up with home health care. He was given printed discharge instructions including prescriptions for extra strength tylenol, aspirin, ketorolac, cefadroxil, zofran, tramadol, senokot, and flomax. Continue physical therapy, weight bearing as tolerated. Continue KEESHA stockings. Follow up approximately 2 weeks post op or sooner if there are problems or concerns. PG Care Time/CCT Total # of Minutes Spent Total Time Spent with Patient: Total time spent is greater than 50% in coordination of care (as documented) at patient's floor/unit and/or counseling patient: Discharge Plan Discharge Items Patient Disposition: Home - Home Health Services Reason For Visit: Left Knee Osteoarthritis Discharge Diagnosis: Left Knee Replacement Activity: Per Instructions section Non-emergency contact: Surgeon Call non-emergency contact if: you have any medication questions Follow-up/Referrals: Rommel Harman MD [Primary Care Provider] - Diet: Regular Addtl Attending Provider Instructions: ACTIVITY RECOMMENDATIONS: Diet: * You may resume previous diet. Physical Therapy: * You will go to physical therapy three times each week for four to six weeks after your surgery in order to regain your knee range of motion and to retrain your knee to work properly. * It is just as important to make sure you are getting your knee perfectly straight as it is to regain your knee bend. * Taking a pain pill an hour before therapy can help you have a more productive and comfortable therapy session. Home Exercise: * You were shown a series of exercises (heel props, heel slides, etc.) in the hospital. Do these exercises three to four times each day including the exercises you were shown in physical therapy. Walking: * Get up and walk several times each day. For the first four weeks, try not to stand or walk for more than one hour at a time. If you do stand or walk for more than one hour, you will not hurt anything, but your knee and leg will likely swell. * As you feel comfortable, you may change from the walker or crutches to a cane and then to independent walking. MEDICATIONS: New Medicine: * You will likely be taking one or more of these medications: 1. Oxycodone - A quick and shorter-acting pain medication. Take one to two tablets every six hours to lessen your pain. 2. Aspirin - Thins your blood to lessen the chance of forming a blood clot. * The most common side effects of pain medicine and iron are nausea and constipation. If nausea or constipation is too much of a problem or if you have any questions about your new medicines or doses, call [facility] at . We will try to help you manage these issues. "VERY IMPORTANT TO READ AND REVIEW" Pain: * The immediate post-operative period after knee replacement surgery is often quite painful. * You are given a prescription for pain medicine. You should take it, as directed, when you need it, especially before physical therapy and before going to bed. Pain that interferes with sleep is very common and can last several months. * You will likely need pain medicine for the first four to six weeks. It will not stop all of the pain. The pain will lessen and as you feel better, you may change to milder pain medicine such as Tylenol. * The most common side effects of pain medicine are nausea and constipation, so don't take more than you need. SPECIAL CARE INSTRUCTIONS: TEDs/Elastic Stockings: * The white elastic stockings help limit swelling and prevent blood clots from forming in your legs. The more you wear them, the more they work. * Wear them for six weeks after knee replacement surgery and four weeks after partial knee replacement. Incision Site Care: * Remove dressing postoperative day 2 and then shower. Keep direct shower pressure off the incision site. * After showering, cover felix with dry gauze and change daily or more frequently if the dressing is getting saturated with drainage. * Use the KEESHA stockings to hold dressing in place. DO NOT apply tape on the skin. * May completely stop using bandage if wound is dry and no drainage * [place] are removed between 2 and 3 weeks post-op. If your follow-up appointment is made before 2 weeks, please have your appointment re- scheduled. It is too early to remove the felix. Prevention of Infection: * Take antibiotics one hour before any dental cleaning, dental work, urological procedure, gastrointestinal procedure or any invasive surgery in order to prevent your new joint from getting infected. * You may get the antibiotics from the doctor performing the procedure or you may call our office at [phone] before and we will call in a prescription to the pharmacy of your choice. Things to Watch For: * Drainage from the incision site that occurs more than one week after your surgery. * Severely increased knee/leg pain or swelling. * Increased redness at the incision site. * Fever above 102 degrees Fahrenheit. * Unusual chest pain or shortness of breath. * Unusual pain or burning with urination. Call [facility] at [phone] with any of the above problems or if you have any questions about your medicines or recovery. FOLLOW UP VISIT: Make an appointment to see your doctor for approximately two weeks after surgery for a progress check and staple removal by calling the office at [phone]. Pending Studies at Discharge: No Stand-Alone Forms: My [facility], Smoking Cessation Medications and DC Order Prescriptions: Continued sennosides [Senokot] 8.6 mg tablet 8.6 mg PO BID 14 Days Qty: 28 0RF Rx Instructions: Take two times a day to prevent/treat constipation aspirin [Andriy Low Dose Aspirin] 81 mg tablet,delayed release (DR/EC) 81 mg PO BID 45 Days Qty: 90 0RF Rx Instructions: Take to prevent blood clots. tramadol 50 mg tablet 50 - 100 mg PO Q6 PRN (Reason: pain) Qty: 40 0RF Rx Instructions: Take as needed for pain acetaminophen [Tylenol Extra Strength] 500 mg tablet 1,000 mg PO TID 30 Days Qty: 180 0RF Rx Instructions: Take 3 times per day to lessen pain. cefadroxil 500 mg capsule 500 mg PO BID 7 Days Qty: 14 0RF Rx Instructions: Take 1 cap twice a day to prevent infection tamsulosin [Flomax] 0.4 mg capsule 0.4 mg PO DAILY Qty: 7 0RF Rx Instructions: Begin night BEFORE surgery to prevent urinary retention ondansetron 4 mg tablet,disintegrating 4 mg PO Q8 PRN (Reason: nausea) Qty: 20 1RF Rx Instructions: Take as needed for nausea (DME) Wheeled Walker Misc See Rx Instructions .MEDSUPPLY Qty: 1 0RF Rx Instructions: As directed ascorbic acid (vitamin C) [Vitamin C] 500 mg Tablet 500 mg PO DAILY metoprolol succinate 25 mg tablet extended release 24 hr 25 mg PO QAM omega-3 fatty acids-fish oil [Fish Oil] 360-1,200 mg Capsule 1 cap PO BID Admission Data Admit Date/Time: 08/05/24 15:27 Attending Provider: Alexi Lazar Admit Provider: Alexi Lazar Primary Care Provider: Rommel Harman Other Providers: [facility]; [facility]; [facility] Other Interventions: Discharge Summary Assessment (RN) Last Done: 08/06/24 11:09
== END 2024-08-06 12:24 | disposition home health service (06) ==
LOC: 3W 10:33 → ASU 10:33